=== PATIENT | male | born 1965 ===

== ENCOUNTER → 2018-07-20 | Outpatient (CLI) | payer SELFPAY ==
[~2018-07-20] MED LIST: LISI-362 PO
[2018-07-20 10:50] LABS: PLATELET COUNT, AUTOMATED 198 K/uL (150-450)
[2018-07-20 11:02] LABS: LDL CHOLESTEROL 107 mg/dl
== END ==
LOC: LAB 10:12
PROVIDERS: ATTEND Internal Medicine
DX: F41.1 Generalized anxiety disorder (principal); I10 Essential (primary) hypertension
CPT/HCPCS: 36415; 81001; 82040; 82247; 82310; 82374; 82435; 82465; 82565; 82947; 83718; 84075; 84132; 84153; 84155; 84295; 84443; 84450; 84460; 84478; 84520; 85025